=== PATIENT | male | born 1945 | race Caucasian/White ===

== ENCOUNTER 2017-08-25 20:09 | Emergency (ER) | payer BC ==
[~2017-08-25] VITALS: Ht 177.8 cm; Wt 78.7 kg
[2017-08-25 22:06] VITALS: BP 139/82
== END 2017-08-25 22:09 | disposition home or self-care (01) ==
LOC: EME 20:09
DX: S05.12XA Contusion of eyeball and orbital tissues, left eye, initial encounter (principal); W22.8XXA Striking against or struck by other objects, initial encounter
CPT/HCPCS: 70480; 99281; 99284